=== PATIENT | male | born 1945 | race Caucasian/White ===

== ENCOUNTER 2016-12-28 18:47 | Inpatient (IN) | payer MEDICARE, OTHER ==
[~2016-12-28] VITALS: Ht 172.7 cm; Wt 92.0 kg
[2016-12-28 18:48] VITALS: BP 137/79; PULSE 117; RESP 20; TEMP 100.3; O2SAT 93
--- NOTE | 2016-12-28 19:33 | PD ---
HPI Chief Complaint: Complaint Time Seen by Provider: 19:32 Travel History International Travel<30 days: No Contact w/Intl Traveler<30days: No Traveled to known affect area: No History of Present Illness HPI 71-year-old Rican male presents to emergency for was several day history of generally feeling unwell with decreased appetite, body aches, and chills and low -grade fever as well as urinary frequency and burning with urination. Patient has history of enlarged prostate for which he takes Flomax. He denies any changes in his sexual activity, and denies any penile drainage. He denies testicular pain. He has no history of kidney stones. He states he has some low back pain but no flank pain. He denies nausea, vomiting, or diarrhea. He has no chest pain or shortness of breath. He has no known drug allergies. [facility] Social History Alcohol Use: Yes Tobacco Use: No Substance Use: No Allergies-Medications (Allergen,Severity, Reaction): Coded Allergies: No Known Allergies (Unverified , 12/28/16) Reported Meds & Prescriptions Reported Meds & Active Scripts Active Reported Alfuzosin ER 24 HR 10 Mg Tab 10 Mg PO DAILY Amlodipine (Amlodipine Besylate) 10 Mg Tab 10 Mg PO DAILY Aspirin EC (Aspirin) 81 Mg Tabdr 81 Mg PO DAILY Hydrochlorothiazide 25 Mg Tab 25 Mg PO DAILY Review of Systems Except as stated in HPI: all other systems reviewed are Neg General / Constitutional: Positive: Fever, Chills Eyes: No: Visual changes HENT: No: Headaches Cardiovascular: No: Chest Pain or Discomfort Respiratory: No: Shortness of Breath Gastrointestinal: Positive: Nausea, Loss of Appetite, No: Vomiting, Diarrhea, Abdominal Pain Genitourinary: Positive: Urgency, Frequency, Dysuria, No: Flank Pain Musculoskeletal: No: Pain Skin: No Rash Neurologic: No: Weakness Psychiatric: No: Depression Endocrine: No: Polydipsia Hematologic/Lymphatic: No: Easy Bruising Physical Exam Narrative GENERAL: Patient appears in no acute distress. SKIN: Warm and dry. Normal color. Normal turgor. HEAD: Atraumatic. Normocephalic. EYES: Pupils equal and round. No scleral icterus. No injection or drainage. ENT: No nasal bleeding or discharge. Mucous membranes pink and moist. Pharynx is clear. Airway is patent. NECK: Trachea midline. Supple nontender. CARDIOVASCULAR: Regular rate and rhythm. RESPIRATORY: No accessory muscle use. Clear to auscultation. Breath sounds equal bilaterally. GASTROINTESTINAL: Abdomen soft, mild suprapubic tenderness, nondistended. No point tenderness or rebound. No CVA tenderness. Hepatic and splenic margins not palpable. MUSCULOSKELETAL: Extremities without clubbing, cyanosis, or edema. No obvious deformities. NEUROLOGICAL: Awake and alert. No obvious cranial nerve deficits. Motor grossly within normal limits. Five out of 5 muscle strength in the arms and legs. Normal speech. PSYCHIATRIC: Appropriate mood and affect; insight and judgment normal. Data Data Last Documented VS Vital Signs Date Time Temp Pulse Resp B/P (MAP) Pulse Ox O2 Delivery O2 Flow Rate FiO2 12/28/16 20:45 97 Room Air 12/28/16 20:45 105 16 119/65 (83) 12/28/16 18:48 100.3 Orders Orders Urinalysis - C+S If Indicated (12/28/16 19:43) Complete Blood Count With Diff (12/28/16 19:48) Comprehensive Metabolic Panel (12/28/16 19:48) Lactic Acid Sepsis Protocol (12/28/16 19:48) Blood Culture (12/28/16 19:48) Chest, Single Ap (12/28/16 19:48) Blood Glucose (12/28/16 19:48) Ecg Monitoring (12/28/16 19:48) Iv Access Insert/Monitor (12/28/16 19:48) Oximetry (12/28/16 19:48) Oxygen Administration (12/28/16 19:48) Ceftriaxone Inj (Rocephin Inj) (12/28/16 20:00) Sodium Chlor 0.9% 1000 Ml Inj (Ns 1000 M (12/28/16 20:00) Urine Culture (12/28/16 20:10) Admit Order (Ed Use Only) (12/28/16 22:05) Labs Laboratory Tests Test 12/28/16 20:10 12/28/16 20:12 12/28/16 20:27 Urine Color ORANGE Urine Turbidity CLOUDY Urine pH 6.0 Urine Specific [place] 1.029 Urine Protein 100 mg/dL Urine Glucose (UA) NEG mg/dL Urine Ketones TRACE mg/dL Urine Occult Blood MOD Urine Nitrite POS Urine Bilirubin NEG Urine Urobilinogen 4.0 MG/DL Urine Leukocyte Esterase LARGE Urine RBC 27 /hpf Urine WBC /hpf Urine WBC Clumps FEW Urine Transitional Epithelial Cells 1 /hpf Urine Amorphous Sediment RARE Urine Bacteria MANY /hpf Urine Mucus MANY /lpf Microscopic Urinalysis Comment CULTURE INDICATED White Blood Count 21.0 TH/MM3 Red Blood Count 5.03 MIL/MM3 Hemoglobin 15.4 GM/DL Hematocrit 45.4 % Mean Corpuscular Volume 90.3 FL Mean Corpuscular Hemoglobin 30.7 PG Mean Corpuscular Hemoglobin Concent 34.0 % Red Cell Distribution Width 13.4 % Platelet Count 178 TH/MM3 Mean Platelet Volume 9.3 FL Neutrophils (%) (Auto) 77.8 % Lymphocytes (%) (Auto) 10.7 % Monocytes (%) (Auto) 11.2 % Eosinophils (%) (Auto) 0.1 % Basophils (%) (Auto) 0.2 % Neutrophils # (Auto) 16.4 TH/MM3 Lymphocytes # (Auto) 2.2 TH/MM3 Monocytes # (Auto) 2.4 TH/MM3 Eosinophils # (Auto) 0.0 TH/MM3 Basophils # (Auto) 0.0 TH/MM3 CBC Comment AUTO DIFF Blood Urea Nitrogen 20 MG/DL Creatinine 1.05 MG/DL Random Glucose 158 MG/DL Total Protein 7.3 GM/DL Albumin 3.6 GM/DL Calcium Level 8.6 MG/DL Alkaline Phosphatase 85 U/L Aspartate Amino Transf (AST/SGOT) 18 U/L Alanine Aminotransferase (ALT/SGPT) 34 U/L Total Bilirubin 1.7 MG/DL Sodium Level 137 MEQ/L Potassium Level 3.0 MEQ/L Chloride Level 101 MEQ/L Carbon Dioxide Level 26.1 MEQ/L Anion Gap 10 MEQ/L Estimat Glomerular Filtration Rate 70 ML/MIN Lactic Acid Level 1.9 mmol/L [facility] Medical Decision Making Medical Screen Exam Complete: Yes Emergency Medical Condition: Yes Differential Diagnosis Prostatitis. Urinary tract infection. Urosepsis. Fever. Tachycardia. Narrative Course Patient appears medically stable at time of exam. Labs ordered including CBC, CMP, lactic acid, but cultures 2, and urinalysis. Chest x-ray is ordered as well as the patient's O2 sat is 93%. Chest x-ray shows no acute process. IV access is obtained patient is given 1 g Rocephin IV. Patient also given the thousand mL's normal saline bolus. CBC shows Chemistry shows sodium 137, potassium 3.0, BUN is 20, creatinine is 1.05, GFR estimated at 70. Random glucose is 158, lactic acid is normal at 1.9. Total bilirubin is 1.7, otherwise normal. Urinalysis is grossly positive with 100 urine protein, trace of ketones, moderate occult blood, positive nitrites, large leukocyte esterase, urine RBCs of 27 for high-power field, a few white blood cell clumps many urine bacteria, many urine mucus. Urine culture is now pending. Patient is felt to have urinary sepsis, and hospitalist's call for admission. Patient is given 20 mEq by mouth potassium for a Potassium 3.0. Patient was discussed with Dr. Dominguez who agreed to admit the patient. Sepsis Criteria SIRS Criteria (2 or more): Temp > 100.9 or < 96.8, Heart rate over 90, WBC > 41017, < 4000 or > 10% bands Sepsis Criteria (SIRS+source): Infect source susp/known Criteria Outcome: Meets SIRS criteria Diagnosis Primary Impression: Sepsis Qualified Codes: A41.9 - Sepsis, unspecified organism Additional Impressions: Urinary tract infection Qualified Codes: N30.01 - Acute cystitis with hematuria Prostatitis Qualified Codes: N41.0 - Acute prostatitis Admitting Information Admitting Physician Requests: Admit Condition: Stable Vasquez Harding Dec 28, 2016 19:33
[2016-12-28] MEDS ORDERED: SODIUM CHLOR 0.9% 1000 ML INJ 1,000 ML IV ONE (20:00)
[2016-12-28] MEDS ORDERED: cefTRIAXone INJ 1,000 MG in SODIUM CHLORIDE 0.9% INJ 100 ML IV ONE (20:00)
--- NOTE | 2016-12-28 20:08 | RADRPT ---
EXAM DATE/TIME: 12/28/2016 20:01 [place] COMPARISON: No previous studies available for comparison. INDICATIONS : Shortness of breath, fever, and body aches. MEDICAL HISTORY : Hypertension. Prostate. SURGICAL HISTORY : Appendectomy. ENCOUNTER: Initial ACUITY: 2 days PAIN SCORE: 0/10 LOCATION: Bilateral chest FINDINGS: A single view of the chest demonstrates the lungs to be hypoinflated with no acute infiltrate. Heart size is normal. Osseous structures are intact. CONCLUSION: No acute cardiopulmonary process. Eugenio Gupta MD on December 28, 2016 at 20:06 Board Certified Radiologist. This report was verified electronically.
[2016-12-28] MEDS ORDERED: HYDR25TA5 PO (20:09)
[2016-12-28] MEDS ORDERED: ALFU10TA2 PO (20:09)
[2016-12-28] MEDS ORDERED: ASPI81TA11 PO (20:09)
[2016-12-28] MEDS ORDERED: AMLO10TA2 PO (20:09)
[2016-12-28 20:45] VITALS: BP 119/65; PULSE 105; RESP 16; O2SAT 97
[2016-12-28 21:00] VITALS: BP 128/79; PULSE 106; RESP 20; O2SAT 97
[2016-12-28 21:03] LABS: BACTERIA, URINE MANY /hpf; BLOOD, URINE MOD (NEG); COMMENT (UR) CULTURE INDICATED; CULTURE IF INDICATED CULTURE INDICATED; GLUCOSE,URINE NEG (NEG); KETONE, URINE TRACE mg/dL (NEG); MUCUS URINE MANY /lpf (OCC); NITRITE,URINE POS (NEG); TRANSITIONAL EPI CELLS, URINE 1 /hpf
[2016-12-28 21:06] LABS: URINE COLOR ORANGE (YELLW/STRAW)
[2016-12-28 21:23] LABS: ANION GAP 10 MEQ/L (5-15); AST (GOT) 18 U/L (15-37); BICARBONATE 26.1 MEQ/L (21.0-32.0); BLOOD UREA NITROGEN 20 MG/DL (7-18); CHLORIDE 101 MEQ/L (98-107); GLOMERULAR FILTRATION RATE 70 ML/MIN (>89); SODIUM (NA) 137 MEQ/L (136-145)
[2016-12-28 21:26] LABS: ALKALINE PHOSPHATASE 85 U/L (45-117); ALT (GPT) 34 U/L (12-78); TOTAL BILIRUBIN ADULT 1.7 MG/DL (0.2-1.0)
[2016-12-28 21:48] LABS: AUTOMATED NEUTROPHIL # 16.4 TH/MM3 (1.8-7.7); BASOPHIL % 0.2 % (0.0-2.0); EOSINOPHIL % 0.1 % (0.0-4.0); HEMATOCRIT 45.4 % (39.0-51.0); LYMPH % 10.7 % (9.0-44.0); LYMPHOCYTE # 2.2 TH/MM3 (1.0-4.8); MEAN CELL VOLUME 90.3 FL (80.0-100.0); MEAN CORPUSCULAR HEMOGLOBIN 30.7 PG (27.0-34.0); MONO % 11.2 % (0.0-8.0); NEUT % 77.8 % (16.0-70.0); PLATELET COUNT 178 TH/MM3 (150-450); RED BLOOD COUNT 5.03 MIL/MM3 (4.50-5.90); RED CELL DISTRIBUTION WIDTH 13.4 % (11.6-17.2)
[2016-12-28 21:49] LABS: HEMO FLAGS AUTO DIFF
[2016-12-28 22:00] VITALS: BP 118/59; PULSE 102; RESP 17; O2SAT 96
[2016-12-28 22:17] LABS: PLATELET ESTIMATE SMEAR NORMAL (NORMAL); PLATELET MORPHOLOGY NORMAL (NORMAL); SCAN/DIFF AUTO DIFF CONFIRMED
[2016-12-28] MEDS ORDERED: SODIUM CHLORIDE 0.9% FLUSH 10 ML FLUSH IV FLUSH PRN (22:45)
[2016-12-28] MEDS ORDERED: NALOXONE HCL 0.4 MG/ML AMP IV PRN (22:45)
[2016-12-28 23:00] VITALS: BP 128/76; PULSE 100; RESP 19; O2SAT 96
[2016-12-28] MEDS: CIPROFLOXACIN 400 MG PREMIX 200 ML IV SCH (23:38)
[2016-12-29] VITALS (7 sets, daily range): BP systolic 114–138; BP diastolic 56–73; PULSE 89–113; RESP 16–20; TEMP 96.9–99.8; O2SAT 91–95
[2016-12-29] MEDS ORDERED: ONDANSETRON HCL 4 MG/2 ML VIAL IV PUSH PRN (01:15)
[2016-12-29] MEDS: ACETAMINOPHEN 325 MG TAB PO PRN ×2 (01:46→09:47)
--- NOTE | 2016-12-29 04:26 | HHI.HP ---
[facility] Admission Diagnosis Urosepsis Diagnoses: (1) Urinary tract infection (2) Sepsis Chief Complaint: Body aches and dysuria Travel History International Travel<30 Days: No Contact w/Intl Traveler <30 Da: No Traveled to Known Affected Are: No History of Present Illness Written by Jazmine Schuster, acting as scribe for Dr. Dominguez on 12/29/16 at 04:16. The patient reports body aches and dysuria for a couple of days. Symptoms accompanied by a loss of appetite and fever. Denies hematuria, nausea, vomiting, diarrhea, black or red stool, abdominal pain , chest pain, shortness of breath, dizziness, or syncope. Not recently on antibiotics. Left leg numbness with prolonged standing. Review of Systems Except as stated in HPI: all other systems reviewed are Neg Past Family Social History Past Medical History Hypertension Hepatitis C - placed on Harvony - on last bottle of medication BPH Denies DM, CAD, CHF, COPD, emphysema, asthma, kidney problems, DVT, PE, CVA, seizures, thyroid problems, or cancers. Past Surgical History Abdominal mesh Appendectomy Right knee replacement Reported Medications . Reported Meds & Active Scripts Active Reported Alfuzosin ER 24 HR 10 Mg Tab 10 Mg PO DAILY Amlodipine (Amlodipine Besylate) 10 Mg Tab 10 Mg PO DAILY Aspirin EC (Aspirin) 81 Mg Tabdr 81 Mg PO DAILY Hydrochlorothiazide 25 Mg Tab 25 Mg PO DAILY Allergies: Coded Allergies: No Known Allergies (Unverified , 12/28/16) Active Ordered Medications Current Medications Ceftriaxone Sodium 1000 mg/ Sodium Chloride 100 ml @ 200 mls/hr ONCE ONCE IV Last administered on 12/28/16 20:32; Start 12/28/16 at 20:00; Stop 12/28/16 at 20: 29; Status DC Sodium Chloride 1,000 ml @ 999 mls/hr BOLUS ONCE IV Last administered on 20:32; Start 12/28/16 at 20:00; Stop 12/28/16 at 21:00; Status DC Sodium Chloride (NS Flush) 2 ml UNSCH PRN IV FLUSH FLUSH AFTER USING IV ACCESS ; Start 12/28/16 at 22:45 Sodium Chloride (NS Flush) 2 ml BID IV FLUSH ; Start 12/29/16 at 09:00 Naloxone HCl (Narcan Inj) 0.4 mg UNSCH PRN IV SEE LABEL COMMENTS; Start at 22:45 Ciprofloxacin/ Dextrose 200 ml @ 200 mls/hr Q12H IV Last administered on 23:38; Start 12/28/16 at 23:00 Acetaminophen (Tylenol) 650 mg Q4H PRN PO headaches. pain 1-10 Last administered on 12/29/16 01:46; Start 12/29/16 at 01:15 Ondansetron HCl (Zofran Inj) 4 mg Q6H PRN IV PUSH nausea; Start 12/29/16 at 01: 15 . Family History Mother 95 and alive and well Sister without medical problems . Social History Tobacco: quit 10 years ago Alcohol: denies Illicit Drugs: quit 1981 . Physical Exam Vital Signs Vital Signs Date Time Temp Pulse Resp B/P (MAP) Pulse Ox O2 Delivery O2 Flow Rate FiO2 12/29/16 02:46 18 12/29/16 00:00 97.7 97 18 138/60 (86) 94 12/29/16 00:00 106 18 125/73 (90) 96 12/28/16 23:00 100 19 128/76 (93) 96 Room Air 12/28/16 22:00 102 17 118/59 (78) 96 Room Air 12/28/16 21:00 106 20 128/79 (95) 97 Room Air 12/28/16 20:45 97 Room Air 12/28/16 20:45 105 16 119/65 (83) 97 Room Air 12/28/16 18:48 100.3 117 20 137/79 (98) 93 Room Air Physical Exam GENERAL: This is a obese elderly male patient, in no apparent distress. SKIN: No rashes. Cool and dry. HEAD: Atraumatic. Normocephalic. EYES: No scleral icterus. No injection or drainage. ENT: Nose without bleeding, purulent drainage. NECK: Trachea midline. No JVD or lymphadenopathy. Supple, nontender, no meningeal signs. CARDIOVASCULAR: Regular rate and rhythm without murmurs, gallops, or rubs. RESPIRATORY: Clear to auscultation. Breath sounds equal bilaterally. No wheezes , rales, or rhonchi. GASTROINTESTINAL: Abdomen soft, non-tender, nondistended. No guarding. MUSCULOSKELETAL: Extremities without clubbing, cyanosis, or edema. No calf tenderness. NEUROLOGICAL: Awake and alert. Motor and sensory grossly within normal limits. . Laboratory Laboratory Tests Test 12/28/16 20:10 12/28/16 20:12 12/28/16 20:27 Urine Color ORANGE Urine Turbidity CLOUDY Urine pH 6.0 Urine Specific [place] 1.029 Urine Protein 100 Urine Glucose (UA) NEG Urine Ketones TRACE Urine Occult Blood MOD Urine Nitrite POS Urine Bilirubin NEG Urine Urobilinogen 4.0 Urine Leukocyte Esterase LARGE Urine RBC 27 Urine WBC Urine WBC Clumps FEW Urine Transitional Epithelial Cells 1 Urine Amorphous Sediment RARE Urine Bacteria MANY Urine Mucus MANY Microscopic Urinalysis Comment CULTURE INDICATED White Blood Count 21.0 Red Blood Count 5.03 Hemoglobin 15.4 Hematocrit 45.4 Mean Corpuscular Volume 90.3 Mean Corpuscular Hemoglobin 30.7 Mean Corpuscular Hemoglobin Concent 34.0 Red Cell Distribution Width 13.4 Platelet Count 178 Mean Platelet Volume 9.3 Neutrophils (%) (Auto) 77.8 Lymphocytes (%) (Auto) 10.7 Monocytes (%) (Auto) 11.2 Eosinophils (%) (Auto) 0.1 Basophils (%) (Auto) 0.2 Neutrophils # (Auto) 16.4 Lymphocytes # (Auto) 2.2 Monocytes # (Auto) 2.4 Eosinophils # (Auto) 0.0 Basophils # (Auto) 0.0 CBC Comment AUTO DIFF Differential Comment AUTO DIFF CONFIRMED Platelet Estimate NORMAL Platelet Morphology Comment NORMAL Red Cell Morphology Comment NORMAL Blood Urea Nitrogen 20 Creatinine 1.05 Random Glucose 158 Total Protein 7.3 Albumin 3.6 Calcium Level 8.6 Alkaline Phosphatase 85 Aspartate Amino Transf (AST/SGOT) 18 Alanine Aminotransferase (ALT/SGPT) 34 Total Bilirubin 1.7 Sodium Level 137 Potassium Level 3.0 Chloride Level 101 Carbon Dioxide Level 26.1 Anion Gap 10 Estimat Glomerular Filtration Rate 70 Lactic Acid Level 1.9 Date/Time Source Procedure Growth Status 12/28/16 20:30 Blood Peripheral Aerobic Blood Culture Pending Received 12/28/16 20:30 Blood Peripheral Anaerobic Blood Culture Pending Received 12/28/16 20:10 Urine Random Urine Urine Culture Pending Received Result Diagram: 12/28/16201112/28/162011 Imaging Last Impressions Chest X-Ray 12/28/161947 Signed Impressions: Service Date/Time: December 20:01 - CONCLUSION: No acute cardiopulmonary process. MD Jose F Van VTE Risk Assessment Caprini VTE Risk Assessment: Mod/High Risk (score >= 2) Caprini Risk Assessment Model Point Value = 1 Point Value = 2 Point Value = 3 Point Value = 5 Age 41-60 Minor surgery BMI > 25 kg/m2 Swollen legs Varicose veins or History of unexplained or recurrent spontaneous Oral contraceptives or hormone replacement Sepsis (< 1 month) Serious lung disease, including pneumonia (< 1 month) Abnormal pulmonary function Acute myocardial infarction Congestive heart failure (< 1 month) History of inflammatory bowel disease Medical patient at bed rest Age 61-74 Arthroscopic surgery Major open surgery (> 45 min) Laparoscopic surgery (> 45 min) Malignancy Confined to bed (> 72 hours) Immobilizing plaster cast Central venous access Age >= 75 History of VTE Family history of VTE Factor V Leiden Prothrombin [id number] Lupus anticoagulant Anticardiolipin antibodies Elevated serum homocysteine Heparin-induced thrombocytopenia Other congenital or acquired thrombophilia Stroke (< 1 month) Elective arthroplasty Hip, pelvis, or leg fracture Acute spinal cord injury (< 1 month) Prophylaxis Regimen Total Risk Factor Score Risk Level Prophylaxis Regimen 0-1 Low Early ambulation 2 Moderate Order ONE of the following: *Sequential Compression Device (SCD) *Heparin 5000 units SQ BID 3-4 Higher Order ONE of the following medications: *Heparin 5000 units SQ TID *Enoxaparin/Lovenox 40 mg SQ daily (WT < 150 kg, CrCl > 30 mL/min) *Enoxaparin/Lovenox 30 mg SQ daily (WT < 150 kg, CrCl > 10-29 mL/min) *Enoxaparin/Lovenox 30 mg SQ BID (WT < 150 kg, CrCl > 30 mL/min) AND/OR *Sequential Compression Device (SCD) 5 or more Highest Order ONE of the following medications: *Heparin 5000 units SQ TID (Preferred with Epidurals) *Enoxaparin/Lovenox 40 mg SQ daily (WT < 150 kg, CrCl > 30 mL/min) *Enoxaparin/Lovenox 30 mg SQ daily (WT < 150 kg, CrCl > 10-29 mL/min) *Enoxaparin/Lovenox 30 mg SQ BID (WT < 150 kg, CrCl > 30 mL/min) AND *Sequential Compression Device (SCD) Assessment and Plan Problem List: (1) Urinary tract infection ICD Code: N39.0 - Urinary tract infection, site not specified Status: Acute (2) Sepsis ICD Code: A41.9 - Sepsis, unspecified organism Status: Acute (3) Hypokalemia ICD Code: E87.6 - Hypokalemia Assessment and Plan 71 y/o male with bodyaches and dysuria who presented to ED 12/28/16: Sepsis UTI - temperature 100.3, hr 117, WBC 21.0 with neutrophilia and monocytosis, lactic acid 1.9 - negative CXR - UA c/w UTI - antibiotic: Cipro 400 mg IV q12h - await blood and urine cultures and adjust treatment as indicated Hypokalemia - replace potassium and recheck labs in a.m. - replace as indicated by lab results DVT prophylaxis - Lovenox 40 mg subq q 24h This note was transcribed by amisha [Jazmine Schuster]. I, Dr. Adriano Dominguez personally performed the history, physical exam, and medical decision making; and confirmed the accuracy of the information in the transcribed note. Authenticated by Dr. Adriano Dominguez on 12/29/16 at 04:16. Discussed Condition With ER physician and patient . Physician Certification 2 Midnight Certification Type: Admission for Inpatient Services Order for Inpatient Services The services are ordered in accordance with Medicare regulations or non- Medicare payer requirements, as applicable. In the case of services not specified as inpatient-only, they are appropriately provided as inpatient services in accordance with the 2-midnight benchmark. Estimated LOS (days): 2 days is the estimated time the patient will need to remain in the hospital, assuming treatment plan goals are met and no additional complications. Post-Hospital Plan: Home Problem Qualifiers (1) Urinary tract infection: Qualified Codes: N30.01 - Acute cystitis with hematuria (2) Sepsis: Qualified Codes: A41.9 - Sepsis, unspecified organism Jazmine Schuster Dec 29, 2016 04:26 Adriano Dominguez MD Dec 31, 2016 23:57
[2016-12-29] MEDS ORDERED: POTASSIUM CHLORIDE 25 MEQ EFFERVESCENT TAB PO ONE (04:45)
[2016-12-29] MEDS ORDERED: HYDR25TA5 PO (07:07)
[2016-12-29] MEDS ORDERED: CIPR500T2 PO (07:16)
[2016-12-29 07:27] LABS: AUTOMATED NEUTROPHIL # 13.8 TH/MM3 (1.8-7.7); BASOPHIL # 0.1 TH/MM3 (0-0.2); BASOPHIL % 0.5 % (0.0-2.0); EOSINOPHIL # 0.1 TH/MM3 (0-0.4); EOSINOPHIL % 0.4 % (0.0-4.0); HEMATOCRIT 41.6 % (39.0-51.0); HEMO FLAGS DIFF FINAL; LYMPH % 12.8 % (9.0-44.0); LYMPHOCYTE # 2.4 TH/MM3 (1.0-4.8); MEAN CORPUSCULAR HGB CONC 34.4 % (32.0-36.0); MONO % 11.6 % (0.0-8.0); NEUT % 74.7 % (16.0-70.0); PLATELET COUNT 153 TH/MM3 (150-450); RED BLOOD COUNT 4.62 MIL/MM3 (4.50-5.90); WHITE BLOOD COUNT 18.5 TH/MM3 (4.0-11.0)
[2016-12-29 07:47] LABS: BICARBONATE 27.5 MEQ/L (21.0-32.0); POTASSIUM 3.2 MEQ/L (3.5-5.1)
[2016-12-29] MEDS: SODIUM CHLORIDE 0.9% FLUSH 10 ML FLUSH IV FLUSH SCH ×2 (09:00→23:06)
[2016-12-29] MEDS: CIPROFLOXACIN 400 MG PREMIX 200 ML IV SCH ×2 (11:47→23:07)
[2016-12-29] MEDS ORDERED: ENOXAPARIN SODIUM 40 MG/0.4 ML SYRINGE SQ SCH (14:00)
--- NOTE | 2016-12-29 14:56 | HHI.PR ---
Subjective Remarks Follow-up for sepsis and UTI Patient stated he feels a lot better. Chills and fatigue has improved. Continues to have dysuria. Denied any dominant pain. No nausea/vomiting. He had no other complaints. Dealt with patient's nurse. Objective Vitals Vital Signs Date Time Temp Pulse Resp B/P (MAP) Pulse Ox O2 Delivery O2 Flow Rate FiO2 12/29/16 12:00 99.8 113 16 128/67 (87) 91 12/29/16 08:00 97.3 94 16 120/67 (84) 93 12/29/16 04:00 96.9 89 18 114/56 (75) 94 12/29/16 02:46 18 12/29/16 02:38 105 12/29/16 00:00 97.7 97 18 138/60 (86) 94 12/29/16 00:00 106 18 125/73 (90) 96 12/28/16 23:00 100 19 128/76 (93) 96 Room Air 12/28/16 22:00 102 17 118/59 (78) 96 Room Air 12/28/16 21:00 106 20 128/79 (95) 97 Room Air 12/28/16 20:45 97 Room Air 12/28/16 20:45 105 16 119/65 (83) 97 Room Air 12/28/16 18:48 100.3 117 20 137/79 (98) 93 Room Air I/O 12/28/16 12/28/16 12/28/16 12/29/16 12/29/16 12/29/16 07:00 15:00 23:00 07:00 15:00 23:00 Intake Total 1100 ml 200 ml 200 ml Output Total 300 ml Balance 1100 ml -100 ml 200 ml Intake IV Total 1100 ml 200 ml 200 ml Output Urine Total 300 ml Result Diagram: 12/29/1643 12/29/16 0643 Objective Remarks GENERAL: in NAD SKIN: Warm and dry. HEAD: Normocephalic. EYES: No scleral icterus. No injection or drainage. NECK: Supple, trachea midline. No JVD or lymphadenopathy. CARDIOVASCULAR: Regular rate and rhythm without murmurs, gallops, or rubs. RESPIRATORY: Breath sounds equal bilaterally. No accessory muscle use. GASTROINTESTINAL: Abdomen soft, non-tender, nondistended. MUSCULOSKELETAL: No cyanosis, or edema. BACK: Nontender without obvious deformity. No CVA tenderness. Medications and IVs Current Medications Ceftriaxone Sodium 1000 mg/ Sodium Chloride 100 ml @ 200 mls/hr ONCE ONCE IV Last administered on 12/28/16 20:32; Start 12/28/16 at 20:00; Stop 12/28/16 at 20: 29; Status DC Sodium Chloride 1,000 ml @ 999 mls/hr BOLUS ONCE IV Last administered on 20:32; Start 12/28/16 at 20:00; Stop 12/28/16 at 21:00; Status DC Sodium Chloride (NS Flush) 2 ml UNSCH PRN IV FLUSH FLUSH AFTER USING IV ACCESS ; Start 12/28/16 at 22:45 Sodium Chloride (NS Flush) 2 ml BID IV FLUSH Last administered on 12/29/16 09: 00; Start 12/29/16 at 09:00 Naloxone HCl (Narcan Inj) 0.4 mg UNSCH PRN IV SEE LABEL COMMENTS; Start at 22:45 Ciprofloxacin/ Dextrose 200 ml @ 200 mls/hr Q12H IV Last administered on 11:47; Start 12/28/16 at 23:00 Acetaminophen (Tylenol) 650 mg Q4H PRN PO headaches. pain 1-10 Last administered on 12/29/16 09:47; Start 12/29/16 at 01:15 Ondansetron HCl (Zofran Inj) 4 mg Q6H PRN IV PUSH nausea; Start 12/29/16 at 01: 15 Potassium Bicarb/ Potassium Chloride (K-Lyte Cl Eff) 50 meq ONCE ONCE PO Last administered on 12/29/16 05:10; Start 12/29/16 at 04:45; Stop 12/29/16 at 04: 46; Status DC Enoxaparin Sodium (Lovenox Inj) 40 mg Q24H SQ Last administered on 12/29/16 14: 32; Start 12/29/16 at 14:00 A/P Problem List: (1) Urinary tract infection ICD Code: N39.0 - Urinary tract infection, site not specified Status: Acute (2) Sepsis ICD Code: A41.9 - Sepsis, unspecified organism Status: Acute (3) Hypokalemia ICD Code: E87.6 - Hypokalemia Assessment and Plan 71 y/o male with bodyaches and dysuria who presented to ED 12/28/16: Sepsis UTI - temperature 100.3, hr 117, WBC 21.0 with neutrophilia and monocytosis, lactic acid 1.9 - negative CXR - UA c/w UTI. Cultures growing gram-negative rods. -Pending blood cultures. Continue with Cipro pending sensitivity. Hypokalemia - Replenish as needed. DVT prophylaxis - Lovenox 40 mg subq q 24h Discharge Planning If patient continues to do well possible discharge tomorrow in the a.m. Problem Qualifiers (1) Urinary tract infection: Qualified Codes: N30.01 - Acute cystitis with hematuria (2) Sepsis: Qualified Codes: A41.9 - Sepsis, unspecified organism Marlena Vilchis MD Dec 29, 2016 14:56
[2016-12-29] MEDS ORDERED: CIPR-9 PO (14:57)
[2016-12-30] VITALS: BP 120/66; PULSE 102; RESP 20; TEMP 99.8; O2SAT 93
[2016-12-30 07:08] LABS: HEMATOCRIT 41.2 % (39.0-51.0); MEAN CELL VOLUME 90.2 FL (80.0-100.0); MEAN CORPUSCULAR HEMOGLOBIN 30.9 PG (27.0-34.0); MEAN CORPUSCULAR HGB CONC 34.3 % (32.0-36.0); PLATELET COUNT 162 TH/MM3 (150-450); RED BLOOD COUNT 4.57 MIL/MM3 (4.50-5.90); RED CELL DISTRIBUTION WIDTH 13.1 % (11.6-17.2); REVIEW FLAG FINAL; WHITE BLOOD COUNT 14.7 TH/MM3 (4.0-11.0)
[2016-12-30 07:33] LABS: BICARBONATE 25.5 MEQ/L (21.0-32.0); POTASSIUM 3.1 MEQ/L (3.5-5.1)
[2016-12-30 08:00] VITALS: BP 121/75; PULSE 86; RESP 17; TEMP 96.5; O2SAT 96
[2016-12-30] MEDS ORDERED: POTASSIUM CHLORIDE 20 MEQ CONTROLLED RELEASE TAB PO ONE (09:15)
[2016-12-30] MEDS: SODIUM CHLORIDE 0.9% FLUSH 10 ML FLUSH IV FLUSH SCH (09:17)
[2016-12-30] MEDS: ACETAMINOPHEN 325 MG TAB PO PRN (09:23)
--- NOTE | 2016-12-30 09:33 | HHI.DCPOC ---
Discharge Care Plan Diagnosis: (1) Prostatitis (2) Urinary tract infection Goals to Promote Your Health * To prevent worsening of your condition and complications * To maintain your health at the optimal level Directions to Meet Your Goals Take your medications as prescribed Follow your dietary instruction Follow activity as directed Keep your appointments as scheduled Take your immunizations and boosters as scheduled If your symptoms worsen call your PCP, if no PCP go to Urgent Care Center or Emergency Room Smoking is Dangerous to Your Health. Avoid second hand smoke Call the 24-hour hour crisis hotline for domestic abuse at Marlena Vilchis MD Dec 30, 2016 09:33
--- NOTE | 2016-12-30 09:34 | HHI.DS ---
Discharge Summary Admission Date Dec 28, 2016 at 22:07 Discharge Date: Dec 30, 2016 Admitting Diagnosis Urosepsis (1) Urinary tract infection ICD Code: N39.0 - Urinary tract infection, site not specified Diagnosis: Principal Status: Acute (2) Sepsis ICD Code: A41.9 - Sepsis, unspecified organism Status: Acute (3) Hypokalemia ICD Code: E87.6 - Hypokalemia Diagnosis: Secondary (4) Acute prostatitis ICD Code: N41.0 - Acute prostatitis Diagnosis: Principal Procedures see hospital course Brief History - From Admission The patient reports body aches and dysuria for a couple of days. Symptoms accompanied by a loss of appetite and fever. Denies hematuria, nausea, vomiting, diarrhea, black or red stool, abdominal pain , chest pain, shortness of breath, dizziness, or syncope. Not recently on antibiotics. Left leg numbness with prolonged standing. CBC/BMP: 12/30/16 0624 12/30/16 0624 Significant Findings Laboratory Tests Test 12/28/16 20:10 12/28/16 20:12 12/28/16 20:27 12/29/16 06:43 Urine Color ORANGE (YELLW/STRAW) Urine Turbidity CLOUDY (CLEAR) Urine Protein 100 mg/dL (NEG-TRACE) Urine Ketones TRACE mg/dL (NEG) Urine Occult Blood MOD (NEG) Urine Nitrite POS (NEG) Urine Urobilinogen 4.0 MG/DL (LESS THAN Urine Leukocyte Esterase LARGE (NEG) Urine RBC 27 /hpf (0-3) Urine WBC Clumps FEW (NONE) Urine Bacteria MANY /hpf (NONE) Urine Mucus MANY /lpf (OCC) White Blood Count 21.0 TH/MM3 (4.0-11.0) 18.5 TH/MM3 (4.0-11.0) Neutrophils (%) (Auto) 77.8 % (16.0-70.0) 74.7 % (16.0-70.0) Monocytes (%) (Auto) 11.2 % (0.0-8.0) 11.6 % (0.0-8.0) Neutrophils # (Auto) 16.4 TH/MM3 (1.8-7.7) 13.8 TH/MM3 (1.8-7.7) Monocytes # (Auto) 2.4 TH/MM3 (0-0.9) 2.1 TH/MM3 (0-0.9) Blood Urea Nitrogen 20 MG/DL (7-18) Random Glucose 158 MG/DL (74-106) 108 MG/DL (74-106) Total Bilirubin 1.7 MG/DL (0.2-1.0) Potassium Level 3.0 MEQ/L (3.5-5.1) 3.2 MEQ/L (3.5-5.1) Estimat Glomerular Filtration Rate 70 ML/MIN (>89) Calcium Level 8.3 MG/DL (8.5-10.1) Test 12/30/16 06:24 White Blood Count 14.7 TH/MM3 (4.0-11.0) Random Glucose 107 MG/DL (74-106) Potassium Level 3.1 MEQ/L (3.5-5.1) Imaging Last Impressions Chest X-Ray 12/28/161947 Signed Impressions: Service Date/Time: , December 28, 2016 20:01 - CONCLUSION: No acute cardiopulmonary process. Eugenio Gupta MD PE at Discharge GENERAL: in NAD CARDIOVASCULAR: Regular rate and rhythm without murmurs, gallops, or rubs. RESPIRATORY: Breath sounds equal bilaterally. No accessory muscle use. GASTROINTESTINAL: Abdomen soft, non-tender, nondistended. MUSCULOSKELETAL: No cyanosis, or edema. BACK: Nontender without obvious deformity. No CVA tenderness. Pt update on day of discharge f/u for infection Patient has no complaints. He remains afebrile. Denied abdominal pain. Tolerating oral intake. He is ambulating in the hallway. denied any urinary symptoms. Told patient's nurse who also has no complaints. Hospital Course 71 y/o male with bodyaches and dysuria who presented to ED 12/28/16: Sepsis UTI vs prostatitis - temperature 100.3, hr 117, WBC 21.0 with neutrophilia and monocytosis, lactic acid 1.9 - negative CXR. Patient treated empirically with IV Cipro pending urine cultures. Urine cultures grew Escherichia coli sensitive to Cipro. Hypokalemia - Replenish as needed. Pt Condition on Discharge: Stable Discharge Disposition: Discharge Home Discharge Time: <= 30 minutes Discharge Instructions DIET: Follow Instructions for: Heart Healthy Diet Activities you can perform: Regular-No Restrictions Follow up Referrals: PCP Follow-up - 1 Week New Medications: Ciprofloxacin (Ciprofloxacin) 500 Mg Tab 0 PO BID for Infection for 14 Days, #1 TAB 0 Refills Ciprofloxacin (Cipro) 500 Mg Tab 500 MG PO BID for Infection, #26 TAB 0 Refills Hydrochlorothiazide (Hydrochlorothiazide) 25 Mg Tab 0 PO DAILY for Blood Pressure Management, #1 TAB 0 Refills Continued Medications: Alfuzosin ER 24 HR (Alfuzosin ER 24 HR) 10 Mg Tab 10 MG PO DAILY for BPH, #30 TAB 0 Refills Amlodipine (Amlodipine) 10 Mg Tab 10 MG PO DAILY for Blood Pressure Management, #30 TAB [address] (Aspirin EC) 81 Mg Tabdr 81 MG PO DAILY, TAB 0 Refills Marlena Vilchis MD Dec 30, 2016 09:34
== END 2016-12-30 12:14 | disposition home or self-care (01) | DRG 872 ==
LOC: NEPC 18:47 → NEDA 22:07 → N07B 12-29 00:54
PROVIDERS: ADMIT Family Medicine; ATTEND Family Medicine
DX: A41.9 Sepsis, unspecified organism (principal); I10 Essential (primary) hypertension; N30.01 Acute cystitis with hematuria; N41.0 Acute prostatitis; E87.6 Hypokalemia; N40.0 Benign prostatic hyperplasia without lower urinary tract symptoms; B19.20 Unspecified viral hepatitis C without hepatic coma; Z87.891 Personal history of nicotine dependence; Z96.651 Presence of right artificial knee joint
CPT/HCPCS: 71010; 80048; 80053; 81001; 83605; 85025; 85027; 87040; 87077; 87086; 87186; 96365; J0696; J0744; J1650; J7030